=== PATIENT | male | born 1990 | race Hispanic/Latino ===

== ENCOUNTER 2020-09-16 17:23 | Emergency (ER) | payer OTHER ==
[2020-09-16] MEDS ORDERED: HYDROmorphone HCL INJ 2 MG/ML VIAL IV ONE ×2 (18:28→21:12)
[2020-09-16] MEDS ORDERED: ONDANSETRON INJ 4 MG/2 ML VIAL IV ONE (18:29)
--- NOTE | 2020-09-16 18:49 | ED.PDOC ---
History of Present Illness - General Time Seen by Provider: 09/16/20 18:25 Source: patient Exam Limitations: no limitations - History of Present Illness Initial Comments: PATIENT REPORTS FALLING WITH ALL OF HIS WEIGHT ON HIS RIGHT ARM JUST PRIOR TO ADMISSION, HE REPORTS SEVERE PAIN AT THE TIME OF FALL AND PERSISTENT PAIN DEFORMITY AND SWELLING IN HIS MID RIGHT UPPER ARM. DENIES PRIOR SIMILAR FRACTURES. DENIES ANY HEALTH PROBLEMS. Method of Injury: fell Improving Factors: immobilization Worsening Factors: movement Allergies/Adverse Reactions: Allergies NO KNOWN ALLERGY Allergy (Verified 09/16/20 19:06) Home Medications: Ambulatory Orders NK 09/16/20 Review of Systems - Review of Systems Constitutional: States: no symptoms reported EENTM: States: no symptoms reported Respiratory: States: no symptoms reported Cardiology: States: no symptoms reported Gastrointestinal/Abdominal: States: no symptoms reported Genitourinary: States: no symptoms reported Musculoskeletal: States: see HPI Skin: States: no symptoms reported Neurological: States: no symptoms reported Endocrine: States: no symptoms reported Family Medical History - Family History Mother Family History: Unknown Physical Exam - Physical Exam General Appearance: Alert, Obese, Well Developed, Well Groomed, Well Hydrated Neck: non-tender, full range of motion, supple, normal inspection Cardiovascular/Respiratory: regular rate, rhythm, no M/R/G, normal peripheral pulses Abdominal Exam: non-tender, no organomegaly Back Exam: normal inspection, no CVA tenderness, no vertebral tenderness Shoulder Exam: normal inspection, non-tender Elbow/Forearm Exam: deformity, limited ROM, pain, swelling Wrist Exam: normal inspection, non-tender, no evidence of injury Hand Exam: normal inspection, non-tender, no evidence of injury Neuro/Tendon: normal sensation, normal motor functions, normal tendon functions, responds to pain, no evidence tendon injury Mental Status: alert, oriented x 3 Skin Exam: normal color, warm/dry Progress - Progress Progress: 09/16/20 20:20 DISCUSSED WITH DRA COREY, HE WANTS THE PATIENT'S IMMOBILIZED AND PT TO CONTACT HIS OFFICE FIRST THING IN THE MORNING FOR SURGICAL PLANNING. PT UNDERSTANDS HE WILL NEED A SURGICAL REPAIR FOR HIS ARM TO HEAL PROPERLY, VOICES UNDERSTANDING AND AGREES TO THE PLAN OF CARE. Departure - Departure Clinical Impression: Humerus shaft fracture Qualifiers: Encounter type: initial encounter Fracture type: closed Fracture morphology: transverse Fracture alignment: displaced Laterality: right Qualified Code(s): S42.321A - Displaced transverse fracture of shaft of humerus, right arm, initial encounter for closed fracture Disposition: Discharge to Home or Self Care Condition: Good Instructions: Upper Arm Fracture Home Medications: Ambulatory Orders NK 09/16/20 Additional Instructions: DR COREY, THE [employer]BOARD [employer]GER HAS SEEN YOUR FRACTURE AND IS PLANNING TO FIX IT. NPO IN THE MORNING UNTIL AFTER YOU TALK WITH DR CARLIN OFFICE TO MAKE SURE HE IS NOT GOING TO PLAN SURGERY FOR TOMORROW. HE HAS TO DO SURGERY ON YOUR ARM AND YOU SHOULD TALK TO HIS OFFICE FIRST THING IN THE MORNING TO FIND OUT WHICH DAY.
--- NOTE | 2020-09-16 19:50 | RAD ---
EXAM DESCRIPTION: Elbow,Right 2 Views (accession [id number]), Humerus,Right (accession [id number]), Forearm,Right (accession [id number]) CLINICAL HISTORY: 29 years Male, TRAUMA COMPARISON: None. FINDINGS/IMPRESSION: Transverse displaced fracture of the mid humeral shaft. No elbow or forearm fracture. No dislocation. Bone mineralization is normal. Joint spaces are preserved. No joint effusion. Scattered swelling throughout the right upper extremity. Electronically signed by: Brad Hernandez DO 09/16/2020 7:48 PM [facility]
--- NOTE | 2020-09-16 19:50 | RAD ---
EXAM DESCRIPTION: Elbow,Right 2 Views (accession [id number]), Humerus,Right (accession [id number]), Forearm,Right (accession [id number]) CLINICAL HISTORY: 29 years Male, TRAUMA COMPARISON: None. FINDINGS/IMPRESSION: Transverse displaced fracture of the mid humeral shaft. No elbow or forearm fracture. No dislocation. Bone mineralization is normal. Joint spaces are preserved. No joint effusion. Scattered swelling throughout the right upper extremity. Electronically signed by: Brad Hernandez DO 09/16/2020 7:48 PM [facility]
--- NOTE | 2020-09-16 19:50 | RAD ---
EXAM DESCRIPTION: Elbow,Right 2 Views (accession [id number]), Humerus,Right (accession [id number]), Forearm,Right (accession [id number]) CLINICAL HISTORY: 29 years Male, TRAUMA COMPARISON: None. FINDINGS/IMPRESSION: Transverse displaced fracture of the mid humeral shaft. No elbow or forearm fracture. No dislocation. Bone mineralization is normal. Joint spaces are preserved. No joint effusion. Scattered swelling throughout the right upper extremity. Electronically signed by: Brad Hernandez DO 09/16/2020 7:48 PM [facility]
[2020-09-16] MEDS ORDERED: HYDROmorphone HCL INJ 2 MG/ML VIAL ONE (21:14)
[2020-09-16] MEDS ORDERED: SODIUM CHLORIDE 0.9% (FLUSH) 10 ML SYG ONE (21:15)
[2020-09-16] MEDS ORDERED: traMADol HCL 50 MG (ER DISP) # 6 TABS ONE (22:17)
[2020-09-16] MEDS ORDERED: traMADol HCL 50 MG TAB PO ONE (22:20)
[2020-09-16] MEDS ORDERED: ONDANSETRON ODT 8 MG TAB ONE (22:21)
[2020-09-16] MEDS ORDERED: traMADol HCL 50 MG TAB ONE (22:21)
[2020-09-16] MEDS ORDERED: ONDANSETRON 4 MG TAB PO ONE (22:22)
[2020-09-16] MEDS ORDERED: traMADol HCL 50 MG (ER DISP) # 6 TABS PO ONE (22:22)
[2020-09-16 22:29] VITALS: O2SAT 98
[2020-09-17 02:58] VITALS: BP 159/114; TEMP 98.5
== END 2020-09-16 22:10 | disposition home or self-care (01) ==
LOC: ER 17:23
DX: S42.321A Displaced transverse fracture of shaft of humerus, right arm, initial encounter for closed fracture (principal); V86.69XA Passenger of other special all-terrain or other off-road motor vehicle injured in nontraffic accident, initial encounter; Y92.9 Unspecified place or not applicable
CPT/HCPCS: 73060; 73070; 73090; A4216; J1170; J2405

== ENCOUNTER 2020-09-19 20:16 | Emergency (ER) | payer OTHER ==
[2020-09-19] MEDS ORDERED: MORPHINE SULFATE INJ 10 MG/ML VIAL IV ONE (20:34)
--- NOTE | 2020-09-19 20:34 | ED.PDOC ---
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 Has midshaft humeral fracture. Comes in with a few hours of worsening pain, finger swelling. Denies any new injury. Was suppose to see Dr. Higgins, but due to it being a workers comp issue he is scheduled to see another orthopedic in 3 days. no numbness or tingling. He did get his splint wet while showering. Allergies/Adverse Reactions: Allergies NO KNOWN ALLERGY Allergy (Verified 09/16/20 19:06) Home Medications: Ambulatory Orders Tramadol HCl 50 mg PO Q6HR PRN 09/19/20 Review of Systems - Review of Systems Constitutional: Denies: chills, fever EENTM: Denies: blurred vision, throat pain Respiratory: Denies: cough Cardiology: Denies: chest pain Gastrointestinal/Abdominal: Denies: abdominal pain, diarrhea, nausea Genitourinary: Denies: discharge Musculoskeletal: States: joint pain, muscle pain Skin: Denies: rash Neurological: Denies: numbness, paresthesia, tingling, tremors, weakness Hematologic/Lymphatic: Denies: blood clots, easy bleeding Past Medical History (General) - Patient Medical History Hx Seizures: No Hx Stroke: No Hx Asthma: No Hx Cardiac Disorders: No Hx Hypertension: No Hx Thyroid Disease: No Hx Diabetes: No Hx Cancer: No - Vaccination History Hx Tetanus, Diphtheria Vaccination: No Hx Influenza Vaccination: Yes Hx Pneumococcal Vaccination: No - Social History Hx Alcohol Use: No Family Medical History - Family History Mother Family History: Unknown Physical Exam - Physical Exam General Appearance: Alert, Comfortable, No apparent distress, Well Developed, Well Groomed, Well Hydrated, Well Nourished Eyes, Ears, Nose, Throat Exam: normal ENT inspection Neck: non-tender, full range of motion, supple, normal inspection Cardiovascular/Respiratory: regular rate, rhythm, no M/R/G, normal peripheral pulses, no JVD, normal breath sounds, no respiratory distress Abdominal Exam: non-tender, no organomegaly, no hernia Back Exam: normal inspection, no CVA tenderness, no vertebral tenderness Shoulder Exam: normal inspection, non-tender, no evidence of injury, normal ROM Wrist Exam: normal inspection, non-tender, no evidence of injury, normal ROM Hand Exam: swelling Neuro/Tendon: normal sensation, normal motor functions, normal tendon functions, responds to pain Mental Status: alert, oriented x 3 Skin Exam: normal color, warm/dry Departure - Departure Clinical Impression: Humeral fracture Qualifiers: Encounter type: subsequent encounter Humerus Location: shaft Fracture type: closed Fracture morphology: unspecified fracture morphology Laterality: right Fracture healing: with routine healing Qualified Code(s): S42.301D - Unspecified fracture of shaft of humerus, right arm, subsequent encounter for fracture with routine healing Time of Disposition: 22:39 Disposition: Discharge to Home or Self Care Condition: Fair Departure Forms: ED Discharge - Pt. Copy, Patient Portal Self Enrollment Instructions: DI for Arm Pain, Splint Care, Upper Arm Fracture Diet: resume usual diet Home Medications: Ambulatory Orders Tramadol HCl 50 mg PO Q6HR PRN 09/19/20
--- NOTE | 2020-09-19 22:28 | CT ---
EXAM DESCRIPTION: CTA Upper Extremity 09/19/2020 10:18 PM [employer] CLINICAL HISTORY: 29 years, Male, trauma right arm COMPARISON: None. PROCEDURE: Multiple transaxial tomograms right upper extremity performed after administration of large bolus of IV contrast for complete opacification of the arterial system of the right upper extremity utilizing 2.5 m slice thickness at 2.5 mm interval reconstruction. Subsequent 2-D and 3-D multiplanar reformats, volume rendering technique and maximum intensity projection images were generated. An individualized dose optimization technique, Automated Exposure Control, was utilized for the performed procedure. Findings: Right upper extremity: As described and recent plain film there is a mid shaft right humeral fracture with posterior displacement of the distal fragment site. There is normal axillary artery, brachial artery and proximal antecubital arteries with distal suboptimal opacification due to patient bending of the arm and perhaps time of imaging at the level of just below elbow, there is a questionable filling defect/suboptimal opacification at the distal portion of the brachial artery/before bifurcation, this is best identified on reconstructed coronal images series #1001 image 109/181 findings could be related to patient bending of the elbow and reconstruction less likely possibility of small embolus could be of consideration, distal to it there is decreased caliber of the radial and ulnar vessels, correlate clinically with the patient radial pulses. The soft tissues of the right upper extremity demonstrate to be otherwise unremarkable except for edema/haziness along the posterior aspect proximal humeral/area of fracture. IMPRESSION: FRACTURE MIDSHAFT RIGHT HUMERUS WITH POSTERIOR LISTHESIS DISTAL FRAGMENT SITE. ARTERIAL PHASE DEMONSTRATE DECREASED CALIBER DISTAL BRACHIAL ARTERY WITH HER DIZZINESS IS RELATED TO EMBOLUS AND/OR TIME OF IMAGING AND/OR BANDING OF THE ELBOW DUE TO PATIENT POSITIONING COULD BE OF CONSIDERATION LESS LIKELY EMBOLUS COULD BE OF CONSIDERATION. Electronically signed by: Rizwan Bass MD 09/19/2020 10:27 PM [employer]
[2020-09-19 22:51] VITALS: BP 159/100; TEMP 97.5; O2SAT 99
== END 2020-09-19 22:51 | disposition home or self-care (01) ==
LOC: ER 20:16
DX: S42.301D Unspecified fracture of shaft of humerus, right arm, subsequent encounter for fracture with routine healing (principal); W19.XXXD Unspecified fall, subsequent encounter
CPT/HCPCS: 73206; 80048; J2270